=== PATIENT | female | born 1940 | race Caucasian/White ===

== ENCOUNTER 2016-09-04 08:14 | Emergency (ER) | payer MEDICARE ==
[2016-09-04 08:33] VITALS: BP 163/43
--- NOTE | 2016-09-04 08:49 | EDM.PDOC ---
ED HPI Trauma - General Chief Complaint: Upper Extremity Injury/Pain Stated Complaint: SWOLLEN ARMS AND KNEE FOR 2 WEEKS Time Seen by Provider: 09/04/16 08:47 Source: Reports: Patient, RN notes reviewed History Limitations: Reports: No limitations - History of Present Illness INITIAL COMMENTS - FREE TEXT/NARRATIVE: 76-year-old female presents emergency department today following a fall one week ago she fell on her right knee and then injured her right wrist when she was trying to get up she still has been using the wrist and ambulating but she is experiencing a great amount of pain has not tried anything for the pain Allergies/ADRs: Allergies Penicillins Allergy (Verified 09/04/16 08:37) unknown ascorbic acid Adverse Reaction (Verified 09/04/16 08:37) Other COLD SORES Home Medications: Ambulatory Orders Fluticasone Propionate [Flonase] 2 sprays INH DAILY 09/10/13 [Confirmed 09/04/16 ] Furosemide [Furosemide] 40 mg PO DAILY 09/10/13 [Confirmed 09/04/16] Insulin Glargine,Hum.Rec.Anlog [Lantus Solostar] 30 - 35 units SQ DAILY [Confirmed 09/04/16] Potassium Chloride [Klor-Con M20] 20 meq PO DAILY 09/10/13 [Confirmed 09/04/16] Simvastatin [Simvastatin] 20 mg PO DAILY 09/10/13 [Confirmed 09/04/16] Multivitamin [Multi Vitamin Daily] 1 each PO DAILY 01/20/14 [Confirmed 09/04/16] Vitamin B Complex 100 NO.2 [B100 Balanced] 100 mg PO DAILY 01/20/14 [Confirmed 09/04/16] Silver Sulfadiazine [Silvadene 1% Cream] 1 applic TOP BID PRN 09/19/14 [ Confirmed 09/04/16] Antipyrine/Benzocaine/Glycerin [Auralgan Otic Soln] 1 drop EARBOTH DAILY PRN 06/22 [Confirmed 09/04/16] Calcium Carbonate/Vitamin D3 [Calcium 600 + Vit D 200] 1 tab PO DAILY 08/19/15 [ Confirmed 09/04/16] Cyanocobalamin (Vitamin B-12) [Vitamin B-12] 5,000 mcg PO DAILY 08/19/15 [ Confirmed 09/04/16] Loperamide [Imodium] 1 - 2 mg PO DAILY PRN 08/19/15 [Confirmed 09/04/16] Naproxen Sodium [Aleve] 220 mg PO DAILY 08/19/15 [Confirmed 09/04/16] Triamcinolone Acetonide [Kenalog 0.1% Crm] 0.1 percent TOP BID PRN 08/19/15 [ Confirmed 09/04/16] diphenhydrAMINE [Benadryl] 25 - 50 mg PO DAILY PRN 08/19/15 [Confirmed 09/04/16] guaiFENesin/Dextromethorphan [Tussin Dm Cough Syrup] 2 tsp PO Q4H PRN 08/19/15 [ Confirmed 09/04/16] metFORMIN HCl [Fortamet] 1,000 mg PO DAILY 08/19/15 [Confirmed 09/04/16] Glucosamine/D3/Boswellia Judi [Osteo Bi-Flex Caplet] 1 tab PO DAILY 09/02/15 [ Confirmed 09/04/16] Guiafenesin/Pse 400 mg PO Q4H PRN 09/02/15 [Confirmed 09/04/16] Hydrocortisone [Hydrocortisone 2.5% Crm] 1 applic TOP ASDIRECTED PRN 09/02/15 [ Confirmed 09/04/16] Past Medical History HEENT History: Reports: Cataract, Impaired vision Cardiovascular History: Reports: Heart murmur, High cholesterol, Hypertension Respiratory History: Reports: Sleep apnea Gastrointestinal History: Reports: GERD, Hemorrhoids 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: Musculoskeletal History: Reports: Arthritis, Fracture, Osteoarthritis Endocrine/Metabolic History: Reports: Diabetes, type II, Obesity/BMI 30+ Hematologic History: Reports: B12 deficiency Oncologic (Cancer) History: Reports: Uterine Dermatologic History: Reports: Venous stasis dermatitis - Infectious Disease History Infectious Disease History: Reports: C-difficile, Mumps Other Infectious Disease History: unknown - Past Surgical History HEENT Surgical History: Reports: Cataract surgery Cardiovascular Surgical History: Reports: None Respiratory Surgical History: Reports: None GI Surgical History: Reports: Appendectomy, Bariatric procedure, Cholecystectomy , Colonoscopy, EGD, Hernia, abdominal, Hernia repair/other Female Surgical History: Reports: Hysterectomy Musculoskeletal Surgical History: Reports: Other (see below) Other Musculoskeletal Surgeries/Procedures:: tib/fib fracture right knee Social & Family History - Tobacco Use Smoking Status *Q: Former Smoker Years of Tobacco use: 40 Used Tobacco, but Quit: Yes Month Tobacco Last Used: 1989 Tobacco Use Comment: quit 20 years ago Second Hand Smoke Exposure: No - Caffeine Use Caffeine Use: Reports: Tea - Alcohol Use Days Per Week of Alcohol Use: 0 - Recreational Drug Use Recreational Drug Use: No Review of Systems - Review of Systems Review Of Systems: See Below Musculoskeletal: Reports: joint pain (Right wrist and knee pain) Neurological: Reports: no symptoms Trauma Exam - Physical Exam Exam: See Below Text/Narrative:: Examination of the right wrist I don't appreciate any significant edema she has full range of flexion limited range of extension secondary to pain full range of motion of all digits radial pulses 2+, examination of the knee there is no joint line tenderness there is no patella tenderness Demarcus's is negative anterior drawer is negative she is tender to palpation posterior aspect of the knee Exam Limited By: No limitations General Appearance: Reports: alert, WD/WN, no apparent distress Course - Vital Signs Last Recorded V/S: Last Vital Signs Temp 98.2 F 09/04/16 08:30 Pulse 75 09/04/16 08:30 Resp 18 09/04/16 08:30 BP 163/43 H 09/04/16 08:30 Pulse Ox 94 L 09/04/16 08:30 - Orders/Labs/Meds Orders: Active Orders 24 hr Category Date Time Status Knee 3V Rt [CR] Stat Exams 09/04/16 08:47 Taken Wrist Comp Min 3V Rt [CR] Stat Exams 09/04/16 08:47 Taken Departure - Departure Time of Disposition: 09:20 Disposition: Home, Self-Care 01 Condition: good Clinical Impression: Sprain of right wrist Qualifiers: Encounter type: initial encounter Qualified Code(s): S63.501A - Unspecified sprain of right wrist, initial encounter Sprain of right knee Qualifiers: Encounter type: initial encounter Involved ligament of knee: other ligament Qualified Code(s): S83.8X1A - Sprain of other specified parts of right knee, initial encounter Forms: ED Department Discharge Additional Instructions: Use Tylenol or Motrin as needed for pain control, Please followup with your primary care provider in 5-7 days if not better, please call return to the emergency department with worsening of symptoms. - My Orders Last 24 Hours: My Active Orders 09/04/16 08:47 Knee 3V Rt [CR] Stat Wrist Comp Min 3V Rt [CR] Stat - Assessment/Plan Last 24 Hours: My Active Orders 09/04/16 08:47 Knee 3V Rt [CR] Stat Wrist Comp Min 3V Rt [CR] Stat Plan: Assessment Acuity = acute Site and laterality = sprain to the right wrist and right knee Etiology = secondary to a fall Manifestations = pain Location of injury = home Lab values = right wrist x-ray and right knee x-ray I did review films myself I cannot appreciate any acute process, the official read from radiology is pending Plan I did review films with her talked about options including referral to orthopedics which she declined she also declined any pain medication she would like to follow up with her primary care in 5-7 days if no improvement Patient was in agreement with the plan all questions were answered, they were instructed to return to the emergency department or call for worsening symptoms. This note was dictated using meQu[employer] voice recognition software please call with any questions.
--- NOTE | 2016-09-04 09:29 | CR ---
Knee 3V Rt HISTORY: Fall, pain COMPARISON: None FINDINGS: Mild to moderate degenerative change with marginal osteophyte formation. No fracture or ef fusion. Mild diffuse bone demineralization. Long-standing mild lateral tibial plateau depression thi s was present on prior CT scan of 2014 and appeared acute on the 2015 CT scan.
--- NOTE | 2016-09-04 09:30 | CR ---
Wrist Comp Min 3V Rt HISTORY: Fall, pain. COMPARISON: None FINDINGS: No fracture or dislocation. No bony destructive process seen.
== END 2016-09-04 09:55 | disposition home or self-care (01) ==
LOC: JP.ED 08:14
DX: S63.501A Unspecified sprain of right wrist, initial encounter (principal); H54.7 Unspecified visual loss; E11.9 Type 2 diabetes mellitus without complications; E78.00 Pure hypercholesterolemia, unspecified; I10 Essential (primary) hypertension; Z79.84 Long term (current) use of oral hypoglycemic drugs; Z87.891 Personal history of nicotine dependence; Z88.0 Allergy status to penicillin; Z79.899 Other long term (current) drug therapy; Z98.890 Other specified postprocedural states; W19.XXXA Unspecified fall, initial encounter
CPT/HCPCS: 73110-26-RT; 73110-RT; 73562-26-RT; 73562-RT; 99282; 99284

== ENCOUNTER 2018-07-16 18:15 | Emergency (ER) | payer MEDICARE ==
--- NOTE | 2018-07-16 18:43 | EDM.PDOC ---
ED HPI GENERAL MEDICAL PROBLEM - General Chief Complaint: Upper Extremity Injury/Pain Stated Complaint: FALL VIA NORTH Time Seen by Provider: 07/16/18 18:15 Source of Information: Reports: Patient, EMS History Limitations: Reports: No Limitations - History of Present Illness INITIAL COMMENTS - FREE TEXT/NARRATIVE: 78-year-old female slipped on the ice and fell onto her right shoulder sustaining an injury. She has no other complaints other than significant upper right arm and shoulder pain and inability to move the arm. No shortness of breath or chest pain, no head injury, denies neck pain, nausea vomiting or other symptoms. Onset: Sudden Duration: Hour(s): (Within the last hour) Location: Reports: Upper Extremity, Right Quality: Reports: Sharp, Stabbing Severity: Severe Worsens with: Reports: Movement Associated Symptoms: Reports: No Other Symptoms Right Shoulder Pain Score (Numeric/FACES): 2 - Related Data Allergies Allergy/AdvReac Type Severity Reaction Status Date / Time Penicillins Allergy unknown Verified 07/16/18 18:21 Home Meds: Home Meds Furosemide 40 mg PO DAILY 09/10/13 [History] Insulin Glargine,Hum.Rec.Anlog [Lantus Solostar] 30 - 35 units SQ DAILY [History] Potassium Chloride [Klor-Con M20] 20 meq PO DAILY 09/10/13 [History] Simvastatin 20 mg PO DAILY 09/10/13 [History] Multivitamin [Multi Vitamin Daily] 1 each PO DAILY 01/20/14 [History] Vitamin B Complex 100 NO.2 [B100 Balanced] 100 mg PO DAILY 01/20/14 [History] Calcium Carbonate/Vitamin D3 [Calcium 600 + Vit D 200] 1 tab PO DAILY 08/19/15 [ History] Naproxen Sodium [Aleve] 220 mg PO DAILY 08/19/15 [History] metFORMIN HCl [Fortamet] 1,000 mg PO DAILY 08/19/15 [History] Aspirin 81 mg PO DAILY 07/16/18 [History] Past Medical History HEENT History: Reports: Cataract, Impaired Vision Cardiovascular History: Reports: Heart Murmur, High Cholesterol, Hypertension Respiratory History: Reports: Sleep Apnea Gastrointestinal History: Reports: GERD, Hemorrhoids 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: Musculoskeletal History: Reports: Arthritis, Fracture, Osteoarthritis Endocrine/Metabolic History: Reports: Diabetes, Type II, Obesity/BMI 30+ Hematologic History: Reports: B12 Deficiency Oncologic (Cancer) History: Reports: Uterine Dermatologic History: Reports: Venous Stasis Dermatitis - Infectious Disease History Infectious Disease History: Reports: C-Difficile, Mumps Other Infectious Disease History: unknown - Past Surgical History HEENT Surgical History: Reports: Cataract Surgery GI Surgical History: Reports: Appendectomy, Bariatric Procedure, Cholecystectomy , Colonoscopy, EGD, Hernia, Abdominal, Hernia Repair/Other Female Surgical History: Reports: Hysterectomy Social & Family History - Tobacco Use Smoking Status *Q: Never Smoker - Caffeine Use Caffeine Use: Reports: Tea - Recreational Drug Use Recreational Drug Use: No Review of Systems - Review of Systems Review Of Systems: See Below Constitutional: Denies: Fever Eyes: Denies: Vision Change Respiratory: Denies: Shortness of Breath, Cough Cardiovascular: Denies: Chest Pain GI/Abdominal: Denies: Abdominal Pain Musculoskeletal: Reports: Shoulder Pain (Right-sided) Skin: Denies: Bruising Neurological: Reports: No Symptoms. Denies: Confusion, Headache Psychiatric: Reports: No Symptoms ED EXAM, GENERAL - Physical Exam Exam: See Below Exam Limited By: No Limitations General Appearance: Alert, Moderate Distress Eye Exam: Bilateral Eye: Normal Inspection Head: Atraumatic Neck: Supple Respiratory/Chest: No Respiratory Distress Cardiovascular: Regular Rate, Rhythm Extremities: Other (Right clavicle is nontender, the proximal right humerus is extremely painful to palpation, performed with swelling anteriorly. There is crepitus with any passive range of motion. Distally sensation and circulation are intact) Course - Vital Signs Last Recorded V/S: Last Vital Signs Temp 95.3 F L 07/16/18 18:17 Pulse 68 07/16/18 18:48 Resp 18 07/16/18 18:48 BP 140/80 07/16/18 18:48 Pulse Ox 95 07/16/18 18:48 - Orders/Labs/Meds Orders: Active Orders 24 hr Category Date Time Status Shoulder Comp Rt [CR] Stat Exams 07/16/18 18:20 Taken Shoulder wo Cont Rt [CT] Stat Exams 07/16/18 19:46 Taken Meds: Medications Discontinued Medications Generic Name Dose Route Start Last Admin Trade Name Freq PRN Reason Stop Dose Admin Fentanyl 25 mcg 07/16/18 18:39 07/16/18 18:44 Sublimaze IVPUSH 07/16/18 18:40 25 mcg ONETIME ONE Administration Fentanyl 25 mcg 07/16/18 19:40 07/16/18 19:50 Sublimaze IVPUSH 07/16/18 19:41 25 mcg ONETIME ONE Administration Ondansetron HCl 4 mg 07/16/18 19:59 07/16/18 20:02 Zofran IVPUSH 07/16/18 20:00 4 mg ONETIME ONE Administration Ondansetron HCl Confirm 07/16/18 20:01 07/16/18 20:03 Zofran Administered 07/16/18 20:02 Not Given Dose 4 mg .ROUTE .[employer]-MED ONE - Re-Assessments/Exams Free Text/Narrative Re-Assessment/Exam: 07/16/18 18:47 An x-ray of the right shoulder was obtained which showed a proximal humerus fracture just under the humeral head with rotation of the humeral head 90. Orthopedics was consult and the patient was given 25 g of IV fentanyl. 07/16/18 19:37 Recommendations from orthopedics was to place the patient in shoulder immobilizer and be rechecked in the clinic. The shoulder immobilizer however did not fit her so she was placed in a sling with 2 six-inch Parth wrap swaths pulled the shoulder in place. She'll recheck at the orthopedic clinic tomorrow where Gordy Fang at 1 PM. 07/16/18 21:00 Findings: There is a mildly comminuted, impacted fracture of the right humeral neck and head with mild displacement. There is involvement of the greater tuberosity. There is no dislocation. There is a lucent lesion in the left aspect of the manubrium, nonspecific. Impression: A right humeral head and neck fracture. A lucent manubrial lesion, nonspecific. Recommend followup radiographic evaluation. Departure - Departure Time of Disposition: 20:54 Disposition: Home, Self-Care 01 Condition: Fair Clinical Impression: Humerus surgical neck fracture - Discharge Information Instructions: Humerus Fracture Treated With Immobilization, [id number] Referrals: PCP,None [Primary Care Provider] - Forms: ED Department Discharge Care Plan Goals: Keep arm in sling until tomorrow, use pain medication as prescribed along with ibuprofen or naproxen. Cool compresses or ice to the shoulder may help with swelling. Recheck with Gordy Fang at [facility] orthopedics tomorrow at 1:00. - My Orders Last 24 Hours: My Active Orders 07/16/18 18:20 Shoulder Comp Rt [CR] Stat 07/16/18 19:46 Shoulder wo Cont Rt [CT] Stat - Assessment/Plan Last 24 Hours: My Active Orders 07/16/18 18:20 Shoulder Comp Rt [CR] Stat 07/16/18 19:46 Shoulder wo Cont Rt [CT] Stat
[2018-07-16] MEDS: fentaNYL 100 MCG/2 ML SDV IVPUSH ONE ×2 (18:44→19:50)
[2018-07-16 18:50] VITALS: BP 140/80
[2018-07-16] MEDS: Ondansetron 4 MG/2 ML SDV IVPUSH ONE (20:02)
[2018-07-16] MEDS: Ondansetron 4 MG/2 ML SDV ONE (20:03)
--- NOTE | 2018-07-17 09:57 | CR ---
Impacted right humeral neck fracture. Refer to CT report. No evidence for dislocation.
== END 2018-07-16 20:54 | disposition home or self-care (01) ==
LOC: JP.ED 18:15
DX: S42.211A Unspecified displaced fracture of surgical neck of right humerus, initial encounter for closed fracture (principal); I10 Essential (primary) hypertension; E11.9 Type 2 diabetes mellitus without complications; E66.9 Obesity, unspecified; Z79.4 Long term (current) use of insulin; Z79.82 Long term (current) use of aspirin; Z90.49 Acquired absence of other specified parts of digestive tract; Z98.84 Bariatric surgery status; Z90.710 Acquired absence of both cervix and uterus; Z88.0 Allergy status to penicillin; W00.0XXA Fall on same level due to ice and snow, initial encounter
CPT/HCPCS: 73030; 73200; 96374; 96375; 96376; 99284; J2405; J3010

== ENCOUNTER 2021-02-26 09:00 | Emergency (ER) | payer MEDICARE ==
[2021-02-26 09:43] VITALS: BP 142/58; PULSE 73
--- NOTE | 2021-02-26 09:44 | EDM.PDOC ---
ED HPI GENERAL MEDICAL PROBLEM - General Chief Complaint: General Stated Complaint: BLOOD SUGARS ARE VERY HIGH Time Seen by Provider: 02/26/21 09:25 Source of Information: Reports: Patient, Family, RN History Limitations: Reports: No Limitations - History of Present Illness INITIAL COMMENTS - FREE TEXT/NARRATIVE: 80 yo female came in today for what she thought was elevated BS. She used her meter twice today and registered in the 900's. She had been in the 200's yesterday and has not been ill since. She feels normal. 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) - Related Data Allergies Allergy/AdvReac Type Severity Reaction Status Date / Time Penicillins Allergy unknown Verified 02/26/21 09:28 Home Meds: Home Meds Furosemide 40 mg PO DAILY 09/10/13 [History] Insulin Glargine,Hum.Rec.Anlog [Lantus Solostar] 30 - 35 units SQ DAILY 09/10/13 [History] Potassium Chloride [Klor-Con M20] 20 meq PO DAILY 09/10/13 [History] Simvastatin 20 mg PO DAILY 09/10/13 [History] Multivitamin [Multi Vitamin Daily] 1 each PO DAILY 01/20/14 [History] Vitamin B Complex 100 NO.2 [B100 Balanced] 100 mg PO DAILY 01/20/14 [History] Calcium Carbonate/Vitamin D3 [Calcium 600 + Vit D 200] 1 tab PO DAILY 08/19/15 [History] Naproxen Sodium [Aleve] 220 mg PO DAILY 08/19/15 [History] metFORMIN HCl [Fortamet] 1,000 mg PO DAILY 08/19/15 [History] Aspirin 81 mg PO DAILY 07/16/18 [History] Past Medical History HEENT History: Reports: Cataract, Impaired Vision Cardiovascular History: Reports: Heart Murmur, High Cholesterol, Hypertension Respiratory History: Reports: Sleep Apnea Gastrointestinal History: Reports: GERD, Hemorrhoids 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: Musculoskeletal History: Reports: Arthritis, Fracture, Osteoarthritis Endocrine/Metabolic History: Reports: Diabetes, Type II, Obesity/BMI 30+ Hematologic History: Reports: B12 Deficiency Oncologic (Cancer) History: Reports: Uterine Dermatologic History: Reports: Venous Stasis Dermatitis - Infectious Disease History Infectious Disease History: Reports: C-Difficile, Mumps Other Infectious Disease History: unknown - Past Surgical History HEENT Surgical History: Reports: Cataract Surgery Cardiovascular Surgical History: Reports: None Respiratory Surgical History: Reports: None GI Surgical History: Reports: Appendectomy, Bariatric Procedure, Chol ecystectomy, Colonoscopy, EGD, Hernia, Abdominal, Hernia Repair/Other Female Surgical History: Reports: Hysterectomy Musculoskeletal Surgical History: Reports: Other (See Below) Other Musculoskeletal Surgeries/Procedures:: tib/fib fracture right knee Social & Family History - Tobacco Use Tobacco Use Status *Q: Never Tobacco User - Caffeine Use Caffeine Use: Reports: Tea ED ROS GENERAL - Review of Systems Review Of Systems: See Below Constitutional: Reports: No Symptoms HEENT: Reports: No Symptoms Respiratory: Reports: No Symptoms Cardiovascular: Reports: No Symptoms Endocrine: Reports: High Glucose GI/Abdominal: Reports: No Symptoms : Reports: No Symptoms Musculoskeletal: Reports: No Symptoms Skin: Reports: No Symptoms Neurological: Reports: No Symptoms ED EXAM, GENERAL - Physical Exam Exam: See Below Exam Limited By: No Limitations General Appearance: Alert, WD/WN, No Apparent Distress Eye Exam: Bilateral Eye: Normal Inspection Ears: Normal External Exam, Normal Canal, Hearing Grossly Normal Ear Exam: Bilateral Ear: Auricle Normal, Canal Normal Nose: Normal Inspection, No Blood Throat/Mouth: Normal Inspection, Normal Lips, Normal Oropharynx, Normal Voice, No Airway Compromise Head: Atraumatic, Normocephalic Neck: Normal Inspection Respiratory/Chest: No Respiratory Distress, Lungs Clear, Normal Breath Sounds, No Accessory Muscle Use Cardiovascular: Regular Rate, Rhythm, No Edema Neurological: Alert, Oriented, CN II-XII Intact, Normal Cognition, No Motor/Sensory Deficits Psychiatric: Normal Affect, Normal Mood Skin Exam: Warm, Dry, Intact, Normal Color, No Rash Course - Orders/Labs/Meds Orders: Active Orders 24 hr Category Date Time Status Accu Check [Blood Glucose Check, Bedside] [RC] ONETIME Care 02/26/21 09:25 Active Labs: Laboratory Tests 02/26/21 Range/Units 09:30 POC Glucose 208 H (74-106) mg/dL - Re-Assessments/Exams Free Text/Narrative Re-Assessment/Exam: 02/26/21 09:42 Bedside glucose in the ER in the 200's Departure - Departure Time of Disposition: 09:43 Disposition: Home, Self-Care 01 Condition: Good Clinical Impression: Abnormal glucose measurement - Discharge Information *PRESCRIPTION DRUG MONITORING PROGRAM REVIEWED*: Not Applicable *COPY OF PRESCRIPTION DRUG MONITORING REPORT IN PATIENT NIKKI: Not Applicable Referrals: Destiny Kim PA-C [Primary Care Provider] - Additional Instructions: Talk to your doctor tomorrow about your meter. Check your BS a few more times over the next day to make sure your meter is still reading abnormally. Return if you feel ill. - My Orders Last 24 Hours: My Active Orders 02/26/21 09:25 Accu Check [Blood Glucose Check, Bedside] [RC] ONETIME - Assessment/Plan Last 24 Hours: My Active Orders 02/26/21 09:25 Accu Check [Blood Glucose Check, Bedside] [RC] ONETIME
== END 2021-02-26 09:55 | disposition home or self-care (01) ==
LOC: JP.ED 09:00
DX: E11.65 Type 2 diabetes mellitus with hyperglycemia (principal); E78.00 Pure hypercholesterolemia, unspecified; I10 Essential (primary) hypertension; M19.90 Unspecified osteoarthritis, unspecified site; E66.9 Obesity, unspecified; Z68.38 Body mass index [BMI] 38.0-38.9, adult; Z88.0 Allergy status to penicillin; Z79.4 Long term (current) use of insulin; Z79.82 Long term (current) use of aspirin; Z79.899 Other long term (current) drug therapy
CPT/HCPCS: 82947; 99284

== ENCOUNTER 2021-03-24 05:41 | Day surgery (SDC) | payer MEDICARE ==
[2021-03-24] MEDS ORDERED: Lactated Ringers 1,000 ML IV SCH (06:30)
[2021-03-24] MEDS ORDERED: fentaNYL 100 MCG/2 ML SDV ONE (06:45)
[2021-03-24] MEDS ORDERED: Propofol 200 MG/20 ML SDV ONE (06:45)
[2021-03-24 08:50] VITALS: BP 125/59; PULSE 76
--- NOTE | 2021-03-25 09:59 | OR ---
DATE OF PROCEDURE: 03/24/2021 SURGEON: Jean Carlos Turner MD PREOPERATIVE DIAGNOSIS: Laryngopharyngeal dysphagia. POSTOPERATIVE DIAGNOSES: Laryngopharyngeal dysphagia with normal upper gastrointestinal endoscopic examination, status post Brit-en-Y gastric bypass. OPERATIVE PROCEDURE: Upper gastrointestinal endoscopy. ANESTHESIA: IV sedation. INDICATION FOR PROCEDURE: This is a 80-year-old presenting with some dysphagia referable to the laryngopharyngeal area. This is somewhat intermittent and is often associated with difficulty in swallowing pills. She does not report any heartburn or dysphagia referable to distal or midesophagus, and has not presently had any antisecretory GI medications. Plan is to proceed with upper GI endoscopy with biopsies and/or dilation as indicated. Potential risks including bleeding and perforation were discussed, and the patient wishes to proceed. DETAILS OF PROCEDURE: The patient was taken to the operating room and placed in a left lateral decubitus position. IV sedation was administered after which the upper GI endoscope was passed orally through the length of the esophagus into the gastric pouch and from there roughly 20 cm into the Brit limb. Overall, the examination was grossly entirely normal. There was good visualization of the hypopharynx, larynx, and vocal cord. There is no redness or anatomic abnormalities seen. The upper esophageal sphincter, esophageal body, and EG junction area were all unremarkable. Gastric pouch was normally sized. Gastrojejunostomy was somewhat enlarged, but otherwise intact without significant inflammation. There was no retained food or fluid or bile within the pouch or small bowel, and the visualized portion of the Brit limb was unremarkable. Overall, the findings were grossly entirely normal. The scope was then withdrawn. The above findings reconfirmed. The plan will be to obtaining x-ray, swallow study with speech pathology consult regarding the laryngopharyngeal dysphagia, and otherwise follow up with Lizy Ramirez in [facility] in about 3 weeks to diamond picker some of the bariatric followup issues. Jean Carlos Turner MD /[id number]
== END 2021-03-24 08:45 | disposition home or self-care (01) ==
LOC: JP.SDS 05:41
PROVIDERS: ATTEND Surgery
DX: R13.13 Dysphagia, pharyngeal phase (principal); I10 Essential (primary) hypertension; E78.00 Pure hypercholesterolemia, unspecified; K21.9 Gastro-esophageal reflux disease without esophagitis; G47.33 Obstructive sleep apnea (adult) (pediatric); Z98.84 Bariatric surgery status; Z88.0 Allergy status to penicillin
CPT/HCPCS: 43235; J2704; J3010; J7120